=== PATIENT | male | born 1985 | race Caucasian/White ===

== ENCOUNTER 2017-12-19 05:37 | Emergency (ER) | payer SELFPAY ==
[~2017-12-19] VITALS: Ht 182.9 cm; Wt 109.0 kg
[~2017-12-19 05:37] MED LIST: AMOXICILLIN500 MG PO; AMOXIL500 MG OR; ANTIHYPERTENSIVE; AZITHROMYCIN250 MG PO; CEPHALEXIN500 MG PO; CIPROFLOXACN500 MG PO; FLEXERIL PO; FLEXERIL10 MG OR; LEVACET OR; NAPROSYN500 MG OR; NAPROSYN500 MG PO; NO; OMEPRAZOLE20 MG PO; PERCOCET 5/325M1 TAB PO; PREDNISONE10 MG PO; PROVENTIL HFA IN; SULFACET SOD10 % OU; TESSALON PER100 MG PO; ULTRAM50 M1 PO; UNKNOWN HTN MED; ZOFRAN ODT4 MG PO
[2017-12-19 06:18] LABS: INFLUENZA A POSITIVE (NONE DETECT); INFLUENZA B NONE DETECTED (NONE DETECT)
[2017-12-19] MEDS ORDERED: AMOXICILLIN500 MG PO (06:39)
[2017-12-19] MEDS ORDERED: TAM75CAP PO (06:39)
[2017-12-19 06:57] VITALS: BP 134/92
== END 2017-12-19 07:03 | disposition home or self-care (01) | DRG 195 ==
LOC: ED 05:37
PROVIDERS: Emergency Medicine
DX: J10.1 Influenza due to other identified influenza virus with other respiratory manifestations (principal); J03.90 Acute tonsillitis, unspecified; F17.210 Nicotine dependence, cigarettes, uncomplicated